=== PATIENT | female | born 1960 | race Caucasian/White ===

== ENCOUNTER 2019-10-07 19:15 | Emergency (ER) | payer OTHER ==
--- NOTE | 2019-10-07 19:37 | EDM.PDOC ---
ED HPI GENERAL MEDICAL PROBLEM - General Chief Complaint: Fever Stated Complaint: fever, back pain, chills Time Seen by Provider: 10/07/19 19:20 Source of Information: Reports: Patient, Family History Limitations: Reports: No Limitations - History of Present Illness INITIAL COMMENTS - FREE TEXT/NARRATIVE: Patient to the emergency department complaining of fever and chills off and on for the past couple of days. The patient advises that she recently had lumbar surgery in [place] and was actually discharged from the hospital there this afternoon. On her way home she started feeling more worse and wanted to come to the hospital to make sure that she did not have the flu or strep. The patient advises that she again has had fever and chills she has had generalized myalgia as well as a sore throat. The patient denies any unusual neck, back pain or stiffness other than the postsurgical site area. She denies any numbness or tingling around the site or any pain numbness or tingling going into her extremities. The patient denies any drainage from her surgical site. The patient denies any ear symptoms denies any runny nose or congestion. Denies any change in vision. The patient denies any abdominal pain no nausea no vomiting she denies any cough no chest pain no shortness of breath. The patient advises that she had the symptoms while she was in the hospital she did advise the admitting physician there and she was told that they thought is probably postanesthesia symptoms. Onset: Gradual Duration: Day(s): Location: Reports: Generalized Quality: Reports: Ache Severity: Mild Improves with: Reports: None Worsens with: Reports: None Associated Symptoms: Reports: Fever/Chills. Denies: Chest Pain, Cough, Headaches, Nausea/Vomiting, Rash, Shortness of Breath, Syncope, Weakness Treatments COMPLIANCE NURSE: Reports: Other (see below) (none) Lower Back Pain Score (Numeric/FACES): 6 - Related Data Allergies Allergy/AdvReac Type Severity Reaction Status Date / Time gluten Allergy Severe Anaphylactic Verified 10/07/19 19:23 Shock Sulfa (Sulfonamide Allergy Intermediate Vomiting Verified 10/07/19 19:23 Antibiotics) Home Meds: Home Meds ALPRAZolam [Xanax] 0.25 mg PO BEDTIME PRN 10/15/13 [History] Multivitamin [Multivitamins] 1 each PO DAILY 10/15/13 [History] oxyCODONE HCl/Acetaminophen [Percocet 5-325 mg Tablet] 1 each PO Q6HR PRN [History] metFORMIN HCl [Metformin HCl] 500 mg PO BEDTIME 11/27/15 [History] Ascorbic Acid 500 mg PO DAILY 10/07/19 [History] Aspirin [Ecotrin EC] 81 mg PO DAILY 10/07/19 [History] Cholecalciferol (Vitamin D3) [Vitamin D3] 1,000 unit PO DAILY 10/07/19 [History] Gabapentin [Neurontin] 600 mg PO TID 10/07/19 [History] Lisinopril [Zestril] 20 mg PO DAILY 10/07/19 [History] Olcott-3/DHA/Epa/Fish Oil [Olcott 3 500 Softgel] 1,000 mg PO DAILY 10/07/19 [ History] Polyethylene Glycol 8000 [Polyethylene Glycol] 1 capful PO DAILY 10/07/19 [ History] Rosuvastatin [Crestor] 10 mg PO DAILY 10/07/19 [History] Sennosides/Docusate Sodium [Senna-Docusate Sodium Tablet] 1 tab PO BID 10/07/19 [History] Ubidecarenone [Co Q-10] 200 mg PO BID 10/07/19 [History] Venlafaxine [Effexor XR] 37.5 mg PO DAILY 10/07/19 [History] diazePAM [Valium] 2 mg PO Q6H PRN 10/07/19 [History] Past Medical History Psychiatric History: Reports: Anxiety, Dementia Endocrine/Metabolic History: Reports: Diabetes, Type II Social & Family History - Family History Cardiac: Reports: Hypertension - Living Situation & Occupation Living situation: Reports: , with Family ED ROS GENERAL - Review of Systems Review Of Systems: See Below Constitutional: Reports: Fever, Chills. Denies: Weakness HEENT: Reports: No Symptoms, Throat Pain. Denies: Ear Pain, Nose Pain, Throat Swelling, Vision Change Respiratory: Reports: No Symptoms. Denies: Shortness of Breath, Wheezing, Cough Cardiovascular: Reports: No Symptoms. Denies: Chest Pain Endocrine: Reports: No Symptoms GI/Abdominal: Reports: No Symptoms. Denies: Abdominal Pain, Diarrhea, Nausea, Vomiting : Reports: No Symptoms. Denies: Dysuria, Flank Pain, Frequency, Pain, Urgency Musculoskeletal: Denies: Neck Pain Skin: Reports: No Symptoms. Denies: Bruising, Rash, Erythema Neurological: Reports: No Symptoms. Denies: Dizziness, Headache, Numbness, Paresthesia, Tingling, Weakness, Change in Speech, Gait Disturbance Psychiatric: Reports: No Symptoms ED EXAM, GENERAL - Physical Exam Exam: See Below Exam Limited By: No Limitations General Appearance: Alert, WD/WN, No Apparent Distress Ears: Normal External Exam, Normal Canal, Hearing Grossly Normal, Normal TMs Ear Exam: Bilateral Ear: Auricle Normal, Canal Normal, TM normal Nose: Normal Inspection, Normal Mucosa Throat/Mouth: Normal Inspection, Normal Lips, Normal Oropharynx, Normal Voice, No Airway Compromise Head: Atraumatic, Normocephalic Neck: Normal Inspection, Supple, Non-Tender, Full Range of Motion Respiratory/Chest: No Respiratory Distress, Lungs Clear, Normal Breath Sounds, No Accessory Muscle Use, Chest Non-Tender Cardiovascular: Normal Peripheral Pulses, Regular Rate, Rhythm, No Murmur Peripheral Pulses: 2+: Radial (L), Radial (R), Posterior Tibial (L), Posterior Tibial (R) GI/Abdominal: Soft, Non-Tender Back Exam: Full Range of Motion, Other (Patient does have a incision along the lumbar spine area that does not have any redness or drainage noted.) Extremities: Normal Inspection, Normal Range of Motion, Non-Tender, No Pedal Edema, Normal Capillary Refill Neurological: Alert, Oriented, Normal Cognition, Normal Gait, No Motor/Sensory Deficits Psychiatric: Normal Affect, Normal Mood Skin Exam: Warm, Dry, Intact (Other than the surgical incision), Normal Color, No Rash. No: Ecchymosis, Erythema, Rash Lymphatic: No Adenopathy Course - Vital Signs Text/Narrative:: 1930 The patient was evaluated in the emergency department, the patient's vital signs are stable there is no fever. The patient is requesting a influenza and a strep screen be obtained. This has been ordered and is currently pending 2018 The patient was evaluated in the emergency department the patient strep and influenza test were both negative. The patient's fever did spike to 101 however the patient was covered with several blankets. The blankets course was removed and the patient was given Tylenol 1 g p.o. The patient will be advised to follow-up with her family doctor and operating surgeon this coming week she is to return to the emergency department as needed she is to increase fluids Last Recorded V/S: Last Vital Signs Temp 38.5 C H 10/07/19 20:16 Pulse 105 H 10/07/19 19:35 Resp 20 10/07/19 19:35 BP 118/43 L 10/07/19 19:35 Pulse Ox 97 10/07/19 19:35 Departure - Departure Time of Disposition: 20:19 Disposition: Home, Self-Care 01 Condition: Good Clinical Impression: Postoperative pain after spinal surgery - Discharge Information *PRESCRIPTION DRUG MONITORING PROGRAM REVIEWED*: Not Applicable *COPY OF PRESCRIPTION DRUG MONITORING REPORT IN PATIENT [facility]: Not Applicable Instructions: Fever, Adult, [id number]-[id number] Forms: ED Department Discharge Additional Instructions: Increase fluids Alternate Tylenol and/or Motrin every 4 hours as needed for any fever pain Follow-up with your family doctor and surgeon this coming week Return to the emergency department sooner if worse or any problems Sepsis Event Note - Focused Exam Vital Signs: Vital Signs Temp Pulse Resp BP Pulse Ox 10/07/19 20:16 38.5 C H 10/07/19 19:35 36.7 C 105 H 20 118/43 L 97 Date Exam was Performed: 10/07/19 Time Exam was Performed: 20:17 - Problem List & Annotations (1) Postoperative pain after spinal surgery SNOMED Code(s): 888321167 Code(s): G89.18 - OTHER ACUTE POSTPROCEDURAL PAIN Status: Acute Priority : Medium Current Visit: Yes - Problem List Review Problem List Initiated/Reviewed/Updated: Yes - Assessment/Plan Plan: as above
[2019-10-07 19:40] VITALS: BP 118/43; PULSE 105
[2019-10-07] MEDS ORDERED: Acetaminophen 500 MG Tab PO ONE (20:23)
== END 2019-10-07 20:35 | disposition home or self-care (01) ==
LOC: CC.ED 19:15
DX: G89.18 Other acute postprocedural pain (principal); M54.5 Low back pain; F41.9 Anxiety disorder, unspecified; E11.9 Type 2 diabetes mellitus without complications; Z88.2 Allergy status to sulfonamides; Z91.048 Other nonmedicinal substance allergy status; Z79.899 Other long term (current) drug therapy; Z79.82 Long term (current) use of aspirin
CPT/HCPCS: 87430; 87804; 99283; A9270-GY

== ENCOUNTER → 2022-05-16 | Day surgery (SDC) | payer OTHER, MEDICARE ==
[~2022-05-16] MED LIST: Lactated Ringers 1,000 ML IV SCH; Propofol 200 MG/20 ML SDV ONE
[2022-05-16 11:25] VITALS: BP 113/69; PULSE 76
== END ==
LOC: CC.SDS 06:28
PROVIDERS: ATTEND Family Medicine
DX: Z12.11 Encounter for screening for malignant neoplasm of colon (principal); I10 Essential (primary) hypertension; E78.5 Hyperlipidemia, unspecified; E66.9 Obesity, unspecified; F41.8 Other specified anxiety disorders; E11.40 Type 2 diabetes mellitus with diabetic neuropathy, unspecified; F17.210 Nicotine dependence, cigarettes, uncomplicated; M85.80 Other specified disorders of bone density and structure, unspecified site; Z79.84 Long term (current) use of oral hypoglycemic drugs; Z79.1 Long term (current) use of non-steroidal anti-inflammatories (NSAID); Z79.899 Other long term (current) drug therapy; Z90.710 Acquired absence of both cervix and uterus; Z80.0 Family history of malignant neoplasm of digestive organs; Z88.2 Allergy status to sulfonamides; Z98.890 Other specified postprocedural states; Z87.891 Personal history of nicotine dependence; Z68.30 Body mass index [BMI] 30.0-30.9, adult
CPT/HCPCS: 82947; J2704; J7120